=== PATIENT | male | born 1990 | race Caucasian/White ===

== ENCOUNTER 2023-03-19 09:17 | Outpatient (CLI) | payer OTHER, SELFPAY ==
--- NOTE | 2023-03-19 | EST_ITS ---
Patient Info Name: Carlos Manuel Joshi Age: 32 years : 1990 Gender: Male Ht: 72 in Wt: 244 lbs BSA: 2.40 m2 HR: 71 bpm BP: 96 / 67 mmHg Heart Rhythm: Sinus Rhythm Exam Date: 03/19/2023 9:42 AM Exam Location: Echo Lab Patient Status: Outpatient Admit Date: 03/19/2023 Staff Ordering Physician: DIRK RODRIGUEZ Anca PERSONNEL RECORDS CLERK [employer] Fryer: Eladia Donato RDCS Attending Provider: DIRK RODRIGUEZ Anca PERSONNEL RECORDS CLERK Referring Physician: JENNIFER CASTRO; Exercise Technologist: Eladia Donato RDCS Exercise Physician: Ronen Garay DO Exam Type: CA stress echo Study Info Indications R94.31 - Abnormal electrocardiogram ECG EKG R07.9 - Chest pain, unspecified Treadmill exercise stress echocardiogram is performed. Summary 1. 1. Negative Slick exercise stress test for ischemic ST changes by ECG criteria. 2. 2. Reduced functional capacity, achieving 8.9 METs of workload. 3. 3. Appropriate HR response to exercise. 4. 4. Appropriate HR recovery at 1 minute post exercise. 5. 5. Negative stress echocardiogram for ischemia by wall motion analysis. 6. 6. Patient informed of the above results. Stress Echo Findings Left Ventricle Appropriate increase in LV endocardial thickening with systole. Appropriate augmentation of contractility with systole. No wall motion abnormality. Left Ventricle Normal LV systolic function, no wall motion abnormality. Protocol: Slick Stress ECG Details Stage: REST Duration (min): 11 min : 30 sec Speed (mph): 0.0 Grade (%): 0 HR (bpm): 89 SBP (mmHg): 96 DBP (mmHg): 67 METS: --- Stage: STAGE 1 Duration (min): 1 min : 0 sec Speed (mph): 1.7 Grade (%): 10 HR (bpm): 114 SBP (mmHg): 96 DBP (mmHg): 67 METS: --- Stage: STAGE 1 Duration (min): 2 min : 0 sec Speed (mph): 1.7 Grade (%): 10 HR (bpm): 124 SBP (mmHg): 96 DBP (mmHg): 67 METS: --- Stage: STAGE 1 Duration (min): 3 min : 0 sec Speed (mph): 1.7 Grade (%): 10 HR (bpm): 126 SBP (mmHg): 136 DBP (mmHg): 58 METS: --- Stage: STAGE 2 Duration (min): 1 min : 0 sec Speed (mph): 2.5 Grade (%): 12 HR (bpm): 138 SBP (mmHg): 136 DBP (mmHg): 58 METS: --- Stage: STAGE 2 Duration (min): 2 min : 0 sec Speed (mph): 2.5 Grade (%): 12 HR (bpm): 142 SBP (mmHg): 152 DBP (mmHg): 59 METS: --- Stage: STAGE 2 Duration (min): 3 min : 0 sec Speed (mph): 2.5 Grade (%): 12 HR (bpm): 147 SBP (mmHg): 152 DBP (mmHg): 59 METS: --- Stage: STAGE 3 Duration (min): 1 min : 0 sec Speed (mph): 3.4 Grade (%): 14 HR (bpm): 163 SBP (mmHg): 145 DBP (mmHg): 47 METS: --- Stage: STAGE 3 Duration (min): 1 min : 3 sec Speed (mph): 0.0 Grade (%): 0 HR (bpm): 163 SBP (mmHg): 145 DBP (mmHg): 47 METS: --- Stage: RECOVERY Duration (min): 0 min : 56 sec Speed (mph): 0.0 Grade (%): 0 HR (bpm): 117 SBP (mmHg): 145 DBP (mmHg): 47 METS: --- Stage: RECOVERY Duration (min): 1 min : 56 sec Speed (mph): 0.0 Grade (%): 0 HR (bpm): 1
== END 2023-03-19 09:18 | disposition home or self-care (01) ==
LOC: ANHCARD 09:21
DX: R07.9 Chest pain, unspecified (principal); E78.2 Mixed hyperlipidemia; R94.31 Abnormal electrocardiogram [ECG] [EKG]; Z72.0 Tobacco use
CPT/HCPCS: 93351

== ENCOUNTER 2023-08-14 05:56 | Emergency (ER) | payer OTHER, SELFPAY ==
--- NOTE | ~2023-08-14 | XR_ITS ---
Left foot Technique: AP, oblique, and lateral views were obtained. Clinical History: Injury Findings: No acute fracture or dislocation is seen. Osseous alignment is anatomic. Joint spaces are p reserved without erosive or degenerative change. Soft tissues are unremarkable. Impression: Unremarkable left foot radiographs. Reviewed, dictated and finalized at location . Impression: Unremarkable left foot radiographs.
[2023-08-14 06:00] VITALS: BP 126/78; PULSE 101; RESP 15; TEMP 36.1; O2SAT 100
--- NOTE | 2023-08-14 07:33 | ED.LOWEXIN ---
HPI - Extremity Injury (Lower) General Chief Complaint: Extremity Injury, Lower Stated Complaint: L pinky toe pain Time Seen by Provider: 08/14/23 06:58 History of Present Illness HPI Narrative: Patient is a 33-year-old male who presents ER with pain to the left 5th digit of the left foot. He stubbed his toe against a wall last night. He tried some work weak this morning it was rubbing and caused too much pain. He is able to ambulate. No numbness or tingling. No deformity. No additional concerns. He has not tried any pain medication. Related Data Allergies Allergy/AdvReac Type Severity Reaction Status Date / Time No Known Allergies Allergy Verified 08/14/23 07:33 Review of Systems Musculoskeletal: Musculoskeletal: Reports arthralgias, Reports joint swelling and Denies muscle cramps Integumentary/Breasts: Skin/Breast: Reports system reviewed and no additional complaints, except as docu Neurologic: Reports system reviewed and no additional complaints, except as documented PMFSH Past Medical History Medical History (Updated 08/14/23 @ 07:37 by Guerrero Rosenthal MD) Healthy adult male Exam Narrative: GENERAL: Well-appearing, well-nourished, and in no acute distress. HEAD: Normocephalic, atraumatic. EXTREMITIES: Normal range of motion. No edema. No deformity or tenderness at left 5th digit. NV intact. No 5th metatarsal pain. SKIN: Warm, dry, no rash. NEURO: Alert and oriented x3. PSYCH: Normal mood and affect. Course Course Emergency Course: Informed of results. Anti-inflammatories here and for home. Discharge. Vital Signs Vital signs: Vital Signs Temperature 97 F L 08/14/23 06:00 Pulse Rate 101 H 08/14/23 06:00 Respiratory Rate 15 08/14/23 06:00 Blood Pressure 126/78 08/14/23 06:00 Pulse Oximetry 100 08/14/23 06:00 Oxygen Delivery Room Air 08/14/23 06:00 Temperature 97 F L 08/14/23 06:00 Pulse Rate 101 H 08/14/23 06:00 Respiratory Rate 15 08/14/23 06:00 Blood Pressure 126/78 08/14/23 06:00 Pulse Oximetry 100 08/14/23 06:00 Oxygen Delivery Room Air 08/14/23 06:00 MDM - Extremity Injury (Lower) Imaging Data Radiologist's impression: ITS Impressions Foot X-Ray 08/14/23 07:01 Impression: Unremarkable left foot radiographs. Discharge Plan Discharge Clinical Impression: Sprain of toe, fifth, left Patient Disposition: Home, Self-Care Condition: Stable Additional Instructions: You stubbed your toe. Take naproxen twice a day over the next week to help with discomfort. Return to the ER if you suffered a new injury. Prescriptions: New naproxen 375 mg tablet 375 mg PO BID Qty: 14 0RF Follow-up/Referrals: PHYSICIAN,MANAGER BUSINESS OPERATIONS [Primary Care Provider] - Moreno Reaves MD [Physician] - 1 Week
[2023-08-14] MEDS: NAPROXEN 250 MG TABLET 500 MG PO (07:42)
[2023-08-14 07:48] VITALS: BP 106/74; PULSE 74; RESP 16; TEMP 37.1; O2SAT 100
== END 2023-08-14 07:50 | disposition home or self-care (01) ==
LOC: ANHED 07:45
PROVIDERS: Emergency Provider Emergency Medicine
DX: S93.505A Unspecified sprain of left lesser toe(s), initial encounter (principal); W22.8XXA Striking against or struck by other objects, initial encounter
CPT/HCPCS: 73630; 99283; A9270